=== PATIENT | female | born 1995 | race Caucasian/White ===

== ENCOUNTER → 2019-04-18 | Outpatient (CLI) | payer BC | LOC: COL.RAD 14:12 | DX: J32.9 Chronic sinusitis, unspecified (principal) ==

== ENCOUNTER 2019-04-28 11:30 | Emergency (ER) | payer BC ==
[~2019-04-28] VITALS: Ht 162.6 cm; Wt 72.7 kg
[2019-04-28 12:32] LABS: HEMOGLOBIN 12.1 g/dl (12.5-16.0); MEAN CELL VOLUME 93 fl (80.0-100.0); MEAN CORPUSCULAR HEMOGLOBIN 33 pg (27.0-31.0); MEAN CORPUSCULAR HGB CONC 35 g/dl (33.0-37.0); MEAN PLATELET VOLUME 8.9 fl (7.4-10.4); PLATELET COUNT 279 K/mm3 (130-400); RED BLOOD COUNT 3.71 M/mm3 (4.10-5.30); REDCELL DISTRIBUTION WIDTH-CV 11.7 % (11.5-14.5)
[2019-04-28 12:36] LABS: HEMATOCRIT 34.6 % (37.0-47.0)
[2019-04-28 12:47] LABS: ALBUMIN 4.5 gm/dL (3.5-5.0); BILIRUBIN,TOTAL 0.5 mg/dL (0.0-1.0); CALCIUM 9.3 mg/dL (8.4-10.2); CREATININE, serum 0.79 (0.52-1.25)
[2019-04-28 13:00] LABS: BAND 13 % (0-10); EOSINOPHIL 1 % (0-4); LYMPHOCYTE 2 % (20.0-51.0); NEUTROPHILS 81 % (42.0-75.2)
[2019-04-28 13:01] LABS: PLATELET ESTIMATE NORMAL (NORMAL)
[2019-04-28] MEDS ORDERED: TAMIFLU 75MG75 MG PO (14:43)
[2019-04-28 15:03] VITALS: BP 113/73; PULSE 107; TEMP 100.7
== END 2019-04-28 15:03 | disposition home or self-care (01) ==
LOC: COL.ER 11:30
PROVIDERS: Emergency Medicine
DX: R50.9 Fever, unspecified (principal); E11.9 Type 2 diabetes mellitus without complications
CPT/HCPCS: J7030

== ENCOUNTER 2019-11-26 23:16 | Emergency (ER) | payer BC ==
[~2019-11-26] VITALS: Ht 162.6 cm; Wt 68.2 kg
[~2019-11-26 23:16] MED LIST: TAMIFLU 75MG75 MG PO
[2019-11-26 23:27] VITALS: TEMP 99.3
[2019-11-27] MEDS ORDERED: PRILOSEC10 MG PO (00:12)
[2019-11-27] MEDS ORDERED: PROAIR HFA0.09 MG/AC IH (00:13)
[2019-11-27] MEDS ORDERED: PULMOZYME2.5 MG/2.5 IH (00:13)
[2019-11-27] MEDS ORDERED: [UNRECOGNIZED DRUG - OTHER] (00:14)
[2019-11-27] MEDS ORDERED: ZITHROMAX 250M250 MG (00:14)
[2019-11-27] MEDS ORDERED: LANTUS100 U/ML SQ (00:15)
[2019-11-27] MEDS ORDERED: CREON 60000 U-11 ECC PO (00:15)
[2019-11-27] MEDS ORDERED: NOVOLIN 70/30 710 ML SQ (00:15)
[2019-11-27] MEDS ORDERED: VTAMINC250TA (00:16)
[2019-11-27] MEDS ORDERED: MAGNEBIND 300 21 TAB PO (00:16)
[2019-11-27 00:59] VITALS: BP 139/94; PULSE 80
== END 2019-11-27 01:14 | disposition home or self-care (01) ==
LOC: COL.ER 23:16
DX: U07.1 COVID-19 (principal); E11.9 Type 2 diabetes mellitus without complications; E84.9 Cystic fibrosis, unspecified; Z88.1 Allergy status to other antibiotic agents; Z79.4 Long term (current) use of insulin